=== PATIENT | male | born 1965 ===

== ENCOUNTER 2017-02-23 11:29 | Emergency (ER) | payer MEDICARE ==
[2017-02-23 11:30] VITALS: BMI 23.6
[2017-02-23 11:40] VITALS: BP 150/93; PULSE 90; RESP 18; TEMP 98; O2SAT 100
[2017-02-23 13:34] LABS: BASO % 0.4 % (0.0-2.0); EOS % 0.6 % (0.0-4.0); HEMATOCRIT 34.9 % (35.0-51.0); LYMPH # 1.2 K/uL (1.0-4.3); LYMPH % 15.4 % (20.0-40.0); MEAN CELL VOLUME 82.5 fl (80.0-94.0); MEAN CORPUSCULAR HEMOGLOBIN 25.2 pg (27.0-31.0); MEAN CORPUSCULAR HGB CONC 30.6 g/dL (33.0-37.0); MEAN PLATELET VOLUME 9.9 fl (7.2-11.7); MONO # 0.6 K/uL (0.0-0.8); MONO % 8.6 % (0.0-10.0); NEUT # 5.6 K/uL (1.8-7.0); NRBC % 2.4 % (0.0-0.0); RED CELL DISTRIBUTION WIDTH 14.6 % (11.5-14.5); WHITE BLOOD COUNT 7.5 K/uL (4.8-10.8)
[2017-02-23 13:38] LABS: ALB/GLOB RATIO 1.2 (1.0-2.1); ALKALINE PHOSPHATASE 80 U/L (38-126); ALT/SGPT 19 U/L (21-72); AST/SGOT 22 U/L (17-59); BILIRUBIN,TOTAL 0.1 mg/dl (0.2-1.3); BLOOD UREA NITROGEN 30 mg/dl (9-20); CALCIUM 9.1 mg/dL (8.4-10.2); CARBON DIOXIDE 26 mmol/L (22-30); CHLORIDE 105 mmol/L (98-107); GFR AFRICAN-AMERICAN > 60; GLUCOSE,RANDOM 99 mg/dL (75-110); POTASSIUM 4.7 MMOL/L (3.6-5.0); SODIUM 139 mmol/l (132-148); TOTAL PROTEIN 7.5 G/DL (6.3-8.2)
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
--- NOTE | 2017-02-24 09:55 | CARD ---
APPROVED REPORT EKG Measurement Heart [id number] <Conclusion> Normal sinus rhythm Normal ECG
== END 2017-02-23 16:27 | disposition home or self-care (01) ==
LOC: H.ER 11:29
DX: R42 Dizziness and giddiness (principal); E11.9 Type 2 diabetes mellitus without complications; Z79.4 Long term (current) use of insulin

== ENCOUNTER 2017-03-06 18:06 | Emergency (ER) | payer MEDICARE ==
[2017-03-06 18:07] VITALS: BMI 23.6
[2017-03-06 18:14] VITALS: BP 114/66; PULSE 109; RESP 16; TEMP 99.7; O2SAT 97
--- NOTE | 2017-03-06 18:21 | ED PDOC ---
HPI: CCC, URI, Sore Throat Time Seen by Provider: 03/06/17 18:14 Chief Complaint (Nursing): Fever Chief Complaint (Provider): URI History Per: Patient Additional Complaint(s): 51 yo male, PMH of DM and s/p Renal Transplant, ambulates into ED with c.o sore throat, dry cough and tacticle fever since earlier today. Patient denies medicating for symptoms at home. Pt reports blood sugars have been normal at home. Hx Dm. BGL 103mg/dl in triage. Past Medical History Reviewed: Nursing Documentation, Vital Signs Vital Signs: Last Vital Signs Temp 99.7 F H 03/06/17 18:09 Pulse 109 H 03/06/17 18:09 Resp 16 03/06/17 18:09 BP 114/66 03/06/17 18:09 Pulse Ox 97 03/06/17 18:21 - Medical History PMH: Diabetes Denies: Chronic Kidney Disease - Surgical History Other surgeries: Renal transplant - Family History Family History: States: Unknown Family Hx - Living Arrangements Living Arrangements: With Family - Social History Current smoker - smoking cessation education provided: No Alcohol: None Drugs: Denies - Home Medications Home Medications: Ambulatory Orders Medication Instructions Recorded Insulin Aspart, Recombinant 0 units SC TID 05/12/16 [Novolog] Insulin Glargine, Recombina 15 units SC HS 05/12/16 [Lantus] Azithromycin [Zithromax] 500 mg PO DAILY #6 tab 03/06/17 Ibuprofen [Motrin] 600 mg PO Q6 #20 tab 03/06/17 Promethazine HCl/Codeine 5 ml PO HS #80 ml 03/06/17 [Prometh-Codein 6.25-10 mg/5 ml] - Allergies Allergies/Adverse Reactions: Allergies Allergy/AdvReac Type Severity Reaction Status Date / Time No Known Allergies Allergy Verified 04/17/16 15:09 Review of Systems ROS Statement: Except As Marked, All Systems Reviewed And Found Negative Constitutional: Positive for: Fever ENT: Positive for: Nose Congestion, Throat Pain Respiratory: Positive for: Cough Physical Exam - Reviewed Nursing Documentation Reviewed: Yes Vital Signs Reviewed: Yes - Physical Exam Appears: Positive for: Well, Non-toxic, No Acute Distress Head Exam: Positive for: ATRAUMATIC, NORMAL INSPECTION, NORMOCEPHALIC Skin: Positive for: Normal Color, Warm, DRY Eye Exam: Positive for: EOMI, Normal appearance, PERRL ENT: Positive for: TM Is/Are (WNL), Nasal Congestion, Pharyngeal Erythema. Negative for: Tonsillar Exudate, Tonsillar Swelling Neck: Positive for: Normal, Painless ROM Cardiovascular/Chest: Positive for: Regular Rate, Rhythm Respiratory: Positive for: CNT, Normal Breath Sounds Gastrointestinal/Abdominal: Positive for: Normal Exam, Bowel Sounds, Soft Back: Positive for: Normal Inspection Extremity: Positive for: Normal ROM Neurologic/Psych: Positive for: Alert, Oriented - ECG O2 Sat by Pulse Oximetry: 97 Medical Decision Making Medical Decision Making: Pt afebrile upon arrival, antipyretics withheld CXR: NAD, as read by TONY Flu and Strep (-) Pt educated on URI/Viral syndrome and demonstrated full understanding Advised supportive care and meds as prescribed. Pt scheduled to follow up with PCP on Tuesday. Advised to return to ED sooner if at anytime condition worsens Disposition - Clinical Impression Clinical Impression: Upper respiratory infection - Patient ED Disposition Is Patient to be Admitted: No - Disposition Disposition: Routine/Home Disposition Time: 20:11 Condition: STABLE Prescriptions: Azithromycin [Zithromax] 500 mg PO DAILY #6 tab Ibuprofen [Motrin] 600 mg PO Q6 #20 tab Promethazine HCl/Codeine [Prometh-Codein 6.25-10 mg/5 ml] 5 ml PO HS #80 ml Instructions: Upper Respiratory Infection (ED) Forms: [facility] (Telugu) - POA Present On Arrival: None
--- NOTE | 2017-03-07 10:44 | RAD ---
HISTORY: cough, fever COMPARISON: No prior. TECHNIQUE: Chest PA and lateral FINDINGS: LUNGS: No active pulmonary disease. PLEURA: No significant pleural effusion identified. No pneumothorax apparent. CARDIOVASCULAR: Normal. OSSEOUS STRUCTURES: No significant abnormalities. VISUALIZED UPPER ABDOMEN: Normal. OTHER FINDINGS: None. IMPRESSION: No acute cardiopulmonary disease appreciated.
== END 2017-03-06 20:38 | disposition home or self-care (01) ==
LOC: H.ER 18:06
DX: J06.9 Acute upper respiratory infection, unspecified (principal); E11.9 Type 2 diabetes mellitus without complications; Z79.4 Long term (current) use of insulin; Z94.0 Kidney transplant status

== ENCOUNTER 2017-04-15 20:45 | Emergency (ER) | payer MEDICARE ==
[2017-04-15 20:45] VITALS: BMI 23.6
[2017-04-16] MEDS ORDERED: Sodium Chloride 0.9% 1,000 ML IV STA (00:07)
--- NOTE | 2017-04-16 00:38 | ED PDOC ---
HPI:Nausea, Vomiting, Diarrhea Time Seen by Provider: 04/15/17 23:49 Chief Complaint (Nursing): GI Problem Chief Complaint (Provider): GI Problem History Per: Patient History/Exam Limitations: no limitations Onset/Duration Of Symptoms: Days (x1) Current Symptoms Are (Timing): Still Present Additional Complaint(s): 51 year old male, status post nephrectomy, who presents to the emergency department with a complaint of GI problems including nausea, nonbloody- nonbilious vomiting, 2 episodes of loose partially-formed brown diarrhea, mild abdominal pain and chills ongoing for 1 day. Denied any fever, recent antibiotic use or sick contacts. PMD: none provided Past Medical History Reviewed: Historical Data, Nursing Documentation, Vital Signs Vital Signs: Last Vital Signs Temp 98.8 F 04/15/17 20:58 Pulse 124 H 04/15/17 20:58 Resp 18 04/15/17 20:58 BP 128/78 04/15/17 20:58 Pulse Ox 96 04/15/17 20:58 - Medical History PMH: Diabetes Denies: Chronic Kidney Disease - Surgical History Surgical History: Denies: No Surg Hx Other surgeries: nephrectomy - Family History Family History: States: Unknown Family Hx - Social History Current smoker - smoking cessation education provided: No Alcohol: None Drugs: Denies - Home Medications Home Medications: Ambulatory Orders Medication Instructions Recorded Insulin Aspart, Recombinant 0 units SC TID 05/12/16 [Novolog] Insulin Glargine, Recombina 15 units SC HS 05/12/16 [Lantus] Azithromycin [Zithromax] 500 mg PO DAILY #6 tab 03/06/17 Ibuprofen [Motrin] 600 mg PO Q6 #20 tab 03/06/17 Promethazine HCl/Codeine 5 ml PO HS #80 ml 03/06/17 [Prometh-Codein 6.25-10 mg/5 ml] Ondansetron [Zofran] 4 mg PO Q8H #12 tab 04/16/17 - Allergies Allergies/Adverse Reactions: Allergies Allergy/AdvReac Type Severity Reaction Status Date / Time No Known Allergies Allergy Verified 04/17/16 15:09 Review of Systems ROS Statement: Except As Marked, All Systems Reviewed And Found Negative Constitutional: Positive for: Chills. Negative for: Fever Gastrointestinal: Positive for: Nausea, Vomiting (nonbloody, nonbilious), Abdominal Pain (mild), Diarrhea (loose brown x2) Physical Exam - Reviewed Nursing Documentation Reviewed: Yes Vital Signs Reviewed: Yes - Physical Exam Appears: Positive for: Well, Non-toxic, No Acute Distress Head Exam: Positive for: ATRAUMATIC, NORMAL INSPECTION, NORMOCEPHALIC Skin: Positive for: Normal Color Eye Exam: Positive for: Normal appearance ENT: Positive for: Normal ENT Inspection Neck: Positive for: Normal, Painless ROM. Negative for: Decreased ROM Cardiovascular/Chest: Positive for: Regular Rate, Rhythm, Chest Non Tender Respiratory: Positive for: Normal Breath Sounds. Negative for: Decreased Breath Sounds, Wheezing, Respiratory Distress Gastrointestinal/Abdominal: Positive for: Normal Exam, Soft. Negative for: Tenderness, Mass Extremity: Positive for: Normal ROM (upper/lower). Negative for: Pedal Edema ( bilateral) Neurologic/Psych: Positive for: Alert (x3), Oriented - Laboratory Results Result Diagrams: 04/16/17 00:50 04/16/17 00:50 - ECG O2 Sat by Pulse Oximetry: 96 (RA) Pulse Ox Interpretation: Normal Medical Decision Making Medical Decision Making: Initial Impression: Gastroenteritis Initial Plan: * BMP * LFT * CBC * NS 1,000ml IV per 1,000mls/hr * Zofran 4mg IVP Time: 0250 --Upon provider reevaluation, patient is medically stable, tolerating PO well and requires no further treatment in the ED at this time. Patient will be discharged home with Rx for Zofran 4mg. Counseling was provided and all questions were answered regarding diagnosis and need for follow up with PMD. There is agreement to discharge plan. Return if symptoms persist or worsen. Clinical Impression: Vomiting; gastroenteritis Scribe Attestation: Documented by Laquita Khoury, acting as a scribe for Miguel Hernandez MD. Provider Scribe Attestation: All medical record entries made by the Scribe were at my direction and personally dictated by me. I have reviewed the chart and agree that the record accurately reflects my personal performance of the history, physical exam, medical decision making, and the department course for this patient. I have also personally directed, reviewed, and agree with the discharge instructions and disposition. Disposition - Clinical Impression Clinical Impression: Vomiting, Gastroenteritis - Patient ED Disposition Is Patient to be Admitted: No Counseled Patient/Family Regarding: Studies Performed, Diagnosis, Need For Followup - Disposition Referrals: [facility] [Outside] Disposition: Routine/Home Disposition Time: 02:50 Condition: IMPROVED Prescriptions: Ondansetron [Zofran] 4 mg PO Q8H #12 tab Instructions: Gastroenteritis (ED), Acute Nausea and Vomiting (ED) Forms: [facility] (Irish)
[2017-04-16 01:10] LABS: BASO % 0.4 % (0.0-2.0); EOS % 0.3 % (0.0-4.0); HEMOGLOBIN 11.5 g/dL (12.0-18.0); LYMPH # 0.9 K/uL (1.0-4.3); LYMPH % 12.4 % (20.0-40.0); MEAN CELL VOLUME 81.1 fl (80.0-94.0); MEAN CORPUSCULAR HEMOGLOBIN 25.1 pg (27.0-31.0); MEAN PLATELET VOLUME 10.6 fl (7.2-11.7); MONO # 0.4 K/uL (0.0-0.8); MONO % 5.9 % (0.0-10.0); NEUT # 6.2 K/uL (1.8-7.0); RBC 4.59 Mil/uL (4.40-5.90); RED CELL DISTRIBUTION WIDTH 14.6 % (11.5-14.5); WHITE BLOOD COUNT 7.6 K/uL (4.8-10.8)
[2017-04-16 01:23] LABS: ALB/GLOB RATIO 1.2 (1.0-2.1); ALBUMIN 4.1 g/dL (3.5-5.0); ALT/SGPT 27 U/L (21-72); AST/SGOT 19 U/L (17-59); BILIRUBIN,DIRECT 0.3 mg/ml (0.0-0.4); BLOOD UREA NITROGEN 29 mg/dl (9-20); GFR AFRICAN-AMERICAN > 60; GFR NON-AFRICAN AMERICAN > 60
[2017-04-16 02:56] VITALS: BP 130/78; PULSE 94; RESP 17; TEMP 98.6
[2017-04-16 03:21] VITALS: O2SAT 96
== END 2017-04-16 02:57 | disposition home or self-care (01) ==
LOC: H.ER 20:45
DX: K52.9 Noninfective gastroenteritis and colitis, unspecified (principal); E11.9 Type 2 diabetes mellitus without complications; Z79.4 Long term (current) use of insulin; Z90.5 Acquired absence of kidney
CPT/HCPCS: 80048; 80076; 85025; 96374; 99284; J2405; J7040

== ENCOUNTER 2017-05-27 11:51 | Emergency (ER) | payer MEDICARE ==
[2017-05-27 11:51] VITALS: BMI 23.6
[2017-05-27 11:54] VITALS: PULSE 80; O2SAT 100
[2017-05-27] MEDS ORDERED: Dextrose 50% SYRINGE Inj (50 ml) IVP ONE (11:58)
[2017-05-27] MEDS ORDERED: Dextrose 5%/0.45% NS 1,000 ML IV ONE (12:00)
[2017-05-27 12:05] VITALS: BP 134/74; RESP 12
[2017-05-27 12:28] LABS: BASO % 0.5 % (0.0-2.0); EOS % 0.5 % (0.0-4.0); HEMOGLOBIN 11.1 g/dL (12.0-18.0); LYMPH # 1.9 K/uL (1.0-4.3); LYMPH % 21.5 % (20.0-40.0); MEAN CELL VOLUME 82.3 fl (80.0-94.0); MEAN CORPUSCULAR HEMOGLOBIN 26.1 pg (27.0-31.0); MEAN CORPUSCULAR HGB CONC 31.7 g/dL (33.0-37.0); MEAN PLATELET VOLUME 9.7 fl (7.2-11.7); MONO # 0.8 K/uL (0.0-0.8); MONO % 9.3 % (0.0-10.0); NEUT # 5.9 K/uL (1.8-7.0); NEUT % 68.2 % (50.0-75.0); NRBC % 0.1 % (0.0-0.0); RBC 4.24 Mil/uL (4.40-5.90); RED CELL DISTRIBUTION WIDTH 14.9 % (11.5-14.5); WHITE BLOOD COUNT 8.6 K/uL (4.8-10.8)
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
[2017-05-27 12:40] LABS: ALB/GLOB RATIO 1.1 (1.0-2.1); ALBUMIN 4.2 g/dL (3.5-5.0); ALT/SGPT 22 U/L (21-72); AST/SGOT 21 U/L (17-59); BLOOD UREA NITROGEN 24 mg/dl (9-20); CALCIUM 9.9 mg/dL (8.4-10.2); GFR AFRICAN-AMERICAN > 60; GFR NON-AFRICAN AMERICAN > 60
--- NOTE | 2017-05-27 17:57 | CARD ---
APPROVED REPORT EKG Measurement Heart [id number] <Conclusion> Sinus rhythm with premature atrial complexes Otherwise normal ECG
== END 2017-05-27 14:51 | disposition home or self-care (01) ==
LOC: H.ER 11:51
DX: E11.65 Type 2 diabetes mellitus with hyperglycemia (principal); I10 Essential (primary) hypertension; I49.1 Atrial premature depolarization; Z79.4 Long term (current) use of insulin; Z94.0 Kidney transplant status
CPT/HCPCS: 80053; 82948; 85025; 93005; 96361; 96374; 99284; G0480; J7042

== ENCOUNTER 2017-07-04 10:36 | Emergency (ER) | payer MEDICARE ==
[2017-07-04 10:37] VITALS: BMI 23.6
[2017-07-04 10:46] VITALS: RESP 16; O2SAT 98
[2017-07-04] MEDS ORDERED: Dextrose 50% SYRINGE Inj (50 ml) ONE (10:47)
[2017-07-04] MEDS ORDERED: Dextrose 50% SYRINGE Inj (50 ml) IVP ONE ×2 (10:52→10:53)
[2017-07-04] MEDS ORDERED: Sodium Chloride 0.9% 1,000 ML IV STA (10:54)
[2017-07-04 11:24] LABS: BASO % 0.3 % (0.0-2.0); BLOOD UREA NITROGEN 31 mg/dl (9-20); CALCIUM 10.2 mg/dL (8.4-10.2); EOS # 0.1 K/uL (0.0-0.7); EOS % 0.8 % (0.0-4.0); GFR AFRICAN-AMERICAN > 60; GFR NON-AFRICAN AMERICAN > 60; HEMOGLOBIN 11.7 g/dL (12.0-18.0); LYMPH # 1.6 K/uL (1.0-4.3); LYMPH % 15.7 % (20.0-40.0); MEAN CELL VOLUME 82.5 fl (80.0-94.0); MEAN CORPUSCULAR HGB CONC 31.6 g/dL (33.0-37.0); MEAN PLATELET VOLUME 9.8 fl (7.2-11.7); MONO # 0.9 K/uL (0.0-0.8); MONO % 9.2 % (0.0-10.0); NEUT # 7.4 K/uL (1.8-7.0); RBC 4.5 Mil/uL (4.40-5.90); RED CELL DISTRIBUTION WIDTH 14.7 % (11.5-14.5)
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
--- NOTE | 2017-07-04 13:15 | CT ---
PROCEDURE: CT HEAD WITHOUT CONTRAST. HISTORY: possible head injury AMS COMPARISON: 04/17/2016 TECHNIQUE: Axial computed tomography images were obtained through the head/brain without intravenous contrast. Radiation dose: Total exam DLP = Coronal and sagittal reconstructed images. mGy-cm. This CT exam was performed using one or more of the following dose reduction techniques: Automated exposure control, adjustment of the mA and/or kV according to patient size, and/or use of iterative reconstruction technique. FINDINGS: HEMORRHAGE: No intracranial hemorrhage. BRAIN: No mass effect or edema. No atrophy or chronic microvascular ischemic changes. VENTRICLES: Unremarkable. No hydrocephalus. CALVARIUM: Unremarkable. PARANASAL SINUSES: Unremarkable as visualized. No significant inflammatory changes. MASTOID AIR CELLS: Unremarkable as visualized. No inflammatory changes. OTHER FINDINGS: None. IMPRESSION: No acute intracranial abnormalities. No significant findings to account for the clinical presentation. No significant interval change compared to the prior examination(s).
[2017-07-04 19:24] VITALS: BP 110/70; PULSE 72; TEMP 98.4
--- NOTE | 2017-07-05 12:32 | CARD ---
APPROVED REPORT EKG Measurement Heart [id number] <Conclusion> Sinus rhythm with frequent premature ventricular complexes Possible Left atrial enlargement Borderline ECG
== END 2017-07-04 17:30 | disposition home or self-care (01) ==
LOC: H.ER 10:36
DX: R41.82 Altered mental status, unspecified (principal); E11.65 Type 2 diabetes mellitus with hyperglycemia; Z79.4 Long term (current) use of insulin; I10 Essential (primary) hypertension; I49.3 Ventricular premature depolarization
CPT/HCPCS: 70450; 80048; 82948; 85025; 93005; 96361; 96374; 99285; G0480; J7040